=== PATIENT | male | born 1965 | race Hispanic/Latino ===

== ENCOUNTER 2019-12-20 01:34 | Emergency (ER) | payer BC, OTHER ==
[2019-12-20 01:54] LABS: #Eosinphils 0.1 thou/uL (0.0-0.7); #Lymphocytes 1.8 thou/uL (1.20-3.40); #Monocytes 0.4 thou/uL (0.11-0.59); %Basophils 0.3 % (0.0-1.0); %Eosinophils 1.4 % (0.0-10.0); %Lymphocytes 17.3 % (21.0-51.0); %Monocytes 4.2 % (0.0-10.0); %Neutrophils 76.9 % (42.0-75.0); Mean Corpuscular HGB CONC 33.3 g/dL (32.0-36.0); Mean Corpuscular Hemoglobin 30.2 pg (27.0-31.0); Mean Corpuscular Volume 90.9 fL (78.0-98.0); Mean Platelet Volume 7.4 fL (7.4-10.4); Platelet Count 255 thou/uL (130-400); RBC Distribution Width 11.9 % (11.5-14.5); Red Blood Cell (RBC) Count 5.28 mill/uL (4.70-6.10); White Blood Cell (WBC) Count 10.4 thou/uL (4.8-10.8)
[2019-12-20 02:16] LABS: ALT (SGPT) 36 U/L (8-55); AST (SGOT) 22 U/L (5-34); Albumin 4.6 g/dL (3.5-5.0); Alkaline Phosphatase 68 U/L (40-110); Anion Gap 13 mmol/L (10-20); BUN (Urea Nitrogen) 11 mg/dL (8.4-25.7); Bilirubin, Total 0.7 mg/dL (0.2-1.2); Calc. Creatinine Clearance 0 mL/min (70-130); Calcium 9.3 mg/dL (7.8-10.44); Carbon Dioxide 24 mmol/L (22-29); Chloride 107 mmol/L (98-107); Estimated GFR-MDRD Greater than 90; Globulin 2.7 g/dL (2.4-3.5); Glucose 145 mg/dL (70-105); Lipase 12 U/L (8-78); Potassium 3.8 mmol/L (3.5-5.1); Protein, Total 7.3 g/dL (6.0-8.3); Sodium 140 mmol/L (136-145)
[2019-12-20] MEDS ORDERED: Ondansetron ODT 4 MG TAB ONE (02:51)
[2019-12-20] MEDS ORDERED: Pantoprazole 40 MG VIAL ONE (03:21)
[2019-12-20] MEDS ORDERED: Morphine 4 MG/ML VIAL ONE (03:21)
--- NOTE | 2019-12-20 08:05 | CT ---
PRELIMINARY REPORT/[facility]/EMERGENCY AFTER HOURS PROCEDURE: EXAM: CT Abdomen and Pelvis with Intravenous Contrast CLINICAL HISTORY: 54 yo M with PMH GERD presents for diffuse abdominal pain that began at 2300. Pt reports he feels gas sy, stooled x1 that was normal. Reports nausea, no vomiting. TECHNIQUE: Axial computed tomography images of the abdomen and pelvis with intravenous contrast. Coronal and sa gittal reformatted images are provided. Exam DLP [id number]. CONTRAST: With; [id number] 100ML COMPARISON: None provided. FINDINGS: LUNG BASES: No basilar airspace consolidation or pleural effusion. LIVER: Unremarkable. GALLBLADDER AND BILE DUCTS: Unremarkable. No calcified stone. No ductal dilation. PANCREAS: Unremarkable. SPLEEN: Unremarkable. ADRENAL GLANDS: Unremarkable. KIDNEYS, URETERS, AND BLADDER: Unremarkable. No hydronephrosis or nephrolithiasis. No ureteral or carol dder calculi. STOMACH AND BOWEL: Multiple loops of ileum which are mildly dilated, with mesenteric fat stranding. No discrete transition point. APPENDIX: No CT evidence for appendicitis. Normal appendix. PERITONEUM: No free fluid. No free air. No abscess. LYMPH NODES: No lymphadenopathy. REPRODUCTIVE: Unremarkable as visualized. VASCULATURE: No aortic aneurysm. BONES: No fracture or suspicious osseous abnormality. ABDOMINAL WALL AND SOFT TISSUES: Unremarkable. Small bilateral fat-containing inguinal hernias. Mil d degenerative changes of the spine. IMPRESSION: 1. Dilated loops of ileum with adjacent inflammatory stranding. This is nonspecific but can be seen in partial small bowel obstruction, infectious or inflammatory ileitis. ELECTRONICALLY SIGNED BY: Choco Hammer M.D. Dec 20, 2019 3:53:41 AM NUT TIGHTENER This report is intended for review by the ordering physician only, in accordance of law. If you recei ve this report in error, please call [facility] at [phone]. FINAL REPORT EMERGENT AFTER HOURS CT OF THE ABDOMEN AND PELVIS WITH CONTRAST: FINDINGS/IMPRESSION: I agree with the findings and impression given in the preliminary report per [facility] physici an. There is mild inflammatory change surrounding the distal small bowel loops. This could be secon maria victoria to ileitis. No obvious obstruction is seen at this time. POS: [facility]
[2019-12-20] MEDS ORDERED: Iopamidol-370 76% 500 ML 1 ML ONE (15:09)
== END 2019-12-20 04:21 | disposition home or self-care (01) ==
LOC: ERS 01:34
DX: R10.84 Generalized abdominal pain (principal); I10 Essential (primary) hypertension
CPT/HCPCS: 36415; 74177; 80053; 83690; 84484; 85025; 93005; 96361; 96374; 96375; C9113; J2270; Q0162; Q9967